=== PATIENT | female | born 1950 | race Caucasian/White ===

== ENCOUNTER → 2017-02-18 | Outpatient (CLI) | payer OTHER ==
[~2017-02-18] MED LIST: FAMO1TAB48 PO
--- NOTE | 2017-02-18 15:48 | DIAGNOSTIC IMAGING REPORT ---
R FOOT MIN 3 VIEWS ROUTINE CLINICAL HISTORY: Right foot pain. Injury. COMPARISON: None FINDINGS: Alignment of the right foot is anatomic. The tarsometatarsal joints are intact. No acute fracture is identified. 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 There is mild arthritis within several additional articulations. There is minimal plantar posterior calcaneal spurring. IMPRESSION: No acute fracture or dislocation of the right foot. Electronically signed by: Mehrdad Anne M.D. 02/18/2017 3:47 PM Dictated Date/Time: 02/18/2017 3:45 PM
== END | disposition home or self-care (01) ==
LOC: C.RAD 14:46
PROVIDERS: ATTEND Family Medicine
DX: M79.671 Pain in right foot (principal)

== ENCOUNTER → 2017-06-25 | Outpatient (CLI) | payer OTHER | END | disposition home or self-care (01) | LOC: C.MAMM 08:33 | PROVIDERS: ATTEND Family Medicine | DX: Z13.820 Encounter for screening for osteoporosis (principal) ==